=== PATIENT | male | born 1995 | race Two or more races ===

== ENCOUNTER → 2020-07-02 | Outpatient (CLI) | payer SELFPAY | LOC: M LABSMTC 11:51 | PROVIDERS: ATTEND Pediatrics | DX: Z11.52 Encounter for screening for COVID-19 (principal) ==

== ENCOUNTER 2022-10-10 01:15 | Emergency (ER) | payer SELFPAY ==
[~2022-10-10] VITALS: Ht 175.3 cm; Wt 119.2 kg
[2022-10-10 01:16] VITALS: BP 119/70
== END 2022-10-10 04:04 | disposition left against medical advice (07) ==
LOC: M ED 01:15
DX: Z53.21 Procedure and treatment not carried out due to patient leaving prior to being seen by health care provider (principal)

== ENCOUNTER → 2023-09-27 | Outpatient (REF) | LOC: M PLAIMG 13:33 | PROVIDERS: ATTEND Internal Medicine | DX: R06.02 Shortness of breath (principal) ==